=== PATIENT | male | born 1945 | race Two or more races ===

== ENCOUNTER → 2018-05-31 | Outpatient (CLI) | payer MEDICARE, MEDICAID | END | disposition home or self-care (01) | LOC: CFH 12:59 | PROVIDERS: ATTEND Internal Medicine Cardiovascular Disease | DX: R06.02 Shortness of breath (principal) | CPT/HCPCS: 78452; 93017; A9502 ==

== ENCOUNTER 2019-11-01 13:20 | Outpatient (CLI) | payer MEDICARE, MEDICAID | END 2019-11-01 23:59 | disposition home or self-care (01) | LOC: CFH 13:20 | PROVIDERS: ATTEND Internal Medicine Cardiovascular Disease | DX: I08.2 Rheumatic disorders of both aortic and tricuspid valves (principal); I10 Essential (primary) hypertension | CPT/HCPCS: 93306 ==

== ENCOUNTER 2021-03-11 07:24 | Outpatient (CLI) | payer MEDICARE, MEDICAID ==
[2021-03-11] MEDS ORDERED: MONT10TA6 PO (08:38)
[2021-03-11] MEDS ORDERED: FURO20TA3 PO (08:38)
[2021-03-11] MEDS ORDERED: PROP10DR4 EACHEYE (08:38)
[2021-03-11] MEDS ORDERED: LOSA100T14 PO (08:38)
[2021-03-11] MEDS ORDERED: ASPI81TA45 PO (08:38)
[2021-03-11] MEDS ORDERED: ALFU10TA PO (08:38)
[2021-03-11] MEDS ORDERED: B CO1CAP5 PO (08:38)
[2021-03-11] MEDS ORDERED: AMLO-211 PO (08:38)
[2021-03-11] MEDS ORDERED: ATOR40TA78 PO (08:38)
[2021-03-11] MEDS ORDERED: CARV12.52 PO (08:38)
[2021-03-11] MEDS ORDERED: diclofenac (08:38)
[2021-03-11] MEDS ORDERED: TRAZ50TA66 PO (08:38)
[2021-03-11] MEDS ORDERED: OMEG1CAP23 PO (08:38)
[2021-03-11] MEDS ORDERED: CHLO25TA PO (08:38)
[2021-03-11 08:55] LABS: MICROSCOPIC NOT IND
[2021-03-11 09:06] LABS: ANION GAP 3 mmol/L (5-15); CALCIUM 9.1 mg/dL (8.5-10.1); CHLORIDE 104 mmol/L (98-107)
[2021-03-11 09:10] LABS: ALANINE AMINOTRANSFERASE 36 U/L (12-78); ALKALINE PHOSPHATASE 86 U/L (45-117); BILIRUBIN,TOTAL 0.6 mg/dL (0.2-1.0); CREATININE 1.42 mg/dL (0.7-1.3); TOTAL PROTEIN 7.9 g/dL (6.4-8.2)
[2021-03-24] MEDS ORDERED: VALA10004 PO (15:51)
[2021-03-24] MEDS ORDERED: DAPT500V6 IV (15:51)
== END 2021-03-11 23:59 | disposition home or self-care (01) ==
LOC: STAR 07:24
PROVIDERS: ATTEND Urology
DX: Z01.818 Encounter for other preprocedural examination (principal); N40.1 Benign prostatic hyperplasia with lower urinary tract symptoms
CPT/HCPCS: 36415; 80053; 81003; 87086; 93005

== ENCOUNTER 2021-03-17 10:09 | Observation (INO) | payer MEDICARE, MEDICAID ==
[~2021-03-17] VITALS: Ht 152.4 cm; Wt 87.3 kg
[~2021-03-17 10:09] MED LIST: ALFU10TA PO; AMLO-211 PO; ASPI81TA45 PO; ATOR40TA78 PO; B CO1CAP5 PO; CARV12.52 PO; CHLO25TA PO; FURO20TA3 PO; LOSA100T14 PO; MONT10TA6 PO; OMEG1CAP23 PO; PROP10DR4 EACHEYE; TRAZ50TA66 PO; diclofenac
[2021-03-17 10:40] VITALS: BP 131/80
[2021-03-17] MEDS ORDERED: LACTATED RINGERS 1,000 ML IV SCH (11:00)
[2021-03-17] MEDS ORDERED: CHLORHEXIDINE 15 ML UDC PO ONE (11:00)
[2021-03-17] MEDS ORDERED: FENTANYL PF 250 MCG/5ML ONE (11:25)
[2021-03-17] MEDS ORDERED: PROPOFOL 10 MG/ML, 20ML ONE (12:03)
[2021-03-17] MEDS ORDERED: CEFAZOLIN 1,000 MG ONE (12:03)
[2021-03-17] MEDS ORDERED: SUGAMMADEX 200 MG/2 ML IVPush ONE (12:03)
[2021-03-17] MEDS ORDERED: DEXAMETHASONE 4 MG/ML, 1ML ONE (12:03)
[2021-03-17] MEDS ORDERED: GLYCOPYRROLATE 0.2MG/1ML, 5ML ONE (12:03)
[2021-03-17] MEDS ORDERED: ROCURONIUM 10MG/ML,5ML ONE (12:03)
[2021-03-17] MEDS ORDERED: ONDANSETRON 2MG/ML, 2ML ONE (12:03)
[2021-03-17] MEDS ORDERED: NEOSTIGMINE 1 MG/ML, 10ML ONE (12:03)
[2021-03-17] MEDS ORDERED: SUCCINYLCHOLINE 20 MG/ML, 10ML ONE (12:03)
[2021-03-17] MEDS ORDERED: ALBUTEROL HFA 90 MCG/SPRAY ONE (12:17)
[2021-03-17] MEDS ORDERED: ALBUTEROL SULFATE 2.5 MG/3 ML NPPB PRN (12:30)
[2021-03-17] MEDS ORDERED: ONDANSETRON 2MG/ML, 2ML IV PRN (12:30)
[2021-03-17] MEDS ORDERED: OXYcodone 5 MG/5 ML ORAL.SOL UDC PO PRN (12:30)
[2021-03-17] MEDS ORDERED: LABETALOL 5MG/ML, 20ML IV PRN (12:30)
[2021-03-17] MEDS ORDERED: MEPERIDINE/PF 25MG/0.5ML IVPush PRN (12:30)
[2021-03-17] MEDS ORDERED: HYDROmorphone 2 MG/ML, 1ML IVPush PRN (12:30)
[2021-03-17] MEDS ORDERED: hydrALAzine 20 MG/ML, 1ML IV PRN (12:30)
[2021-03-17] MEDS ORDERED: PROMETHAZINE 25 MG/ML, 1ML IV PRN (12:30)
[2021-03-17] MEDS ORDERED: DIAZEPAM 5 MG/ML, 2ML IVPush PRN (12:30)
[2021-03-17] MEDS ORDERED: ACETAMINOPHEN 325 MG TABLET PO PRN (12:30)
[2021-03-17] MEDS ORDERED: KETOROLAC 30 MG/1 ML IV PRN (12:30)
[2021-03-17] MEDS ORDERED: FENTANYL PF 100 MCG/2ML IV PRN (12:30)
[2021-03-17] MEDS ORDERED: HYDROcodone/APAP 5/325 TABLET PO PRN (12:30)
[2021-03-17 13:45] VITALS: BP 118/70
[2021-03-17] MEDS: LACTATED RINGERS 1,000 ML IV SCH (14:19)
[2021-03-17] MEDS: CARVEDILOL 12.5 MG TABLET PO SCH (17:25)
[2021-03-17 19:25] VITALS: BP 122/66
[2021-03-17] MEDS: ARTIFICIAL TEARS 15 DROP/ML BOTTLE OP SCH (20:39)
[2021-03-17] MEDS ORDERED: ATORVASTATIN 40 MG TABLET PO SCH (21:00)
[2021-03-17] MEDS ORDERED: TRAZODONE 50MG TABLET PO SCH (21:00)
[2021-03-17] MEDS ORDERED: MONTELUKAST 10 MG TABLET PO SCH (21:00)
[2021-03-17 23:27] VITALS: BP 113/66
[2021-03-18] MEDS: LACTATED RINGERS 1,000 ML IV SCH (01:50)
[2021-03-18 03:01] VITALS: BP 116/69
[2021-03-18] MEDS: CARVEDILOL 12.5 MG TABLET PO SCH (05:44)
[2021-03-18] MEDS: ARTIFICIAL TEARS 15 DROP/ML BOTTLE OP SCH (08:41)
[2021-03-18 08:54] VITALS: BP 128/61
[2021-03-18] MEDS ORDERED: FUROSEMIDE 20 MG TABLET PO SCH (09:00)
[2021-03-18] MEDS ORDERED: CHLORTHALIDONE 25 MG TABLET PO SCH (09:00)
[2021-03-18] MEDS ORDERED: AMLODIPINE 10 MG TAB PO SCH (09:00)
[2021-03-18] MEDS ORDERED: OMEGA-3/FISH OIL CAPSULE PO SCH (09:00)
[2021-03-18] MEDS ORDERED: MULTIVITS,STRESS FORMULA 1 TABLET PO SCH (09:00)
[2021-03-18] MEDS ORDERED: LOSARTAN 100 MG TAB PO SCH (09:00)
== END 2021-03-18 12:40 | disposition home or self-care (01) ==
LOC: OUT 10:09 → ORIP 12:24 → 4NE 13:38
PROVIDERS: ADMIT Urology; ATTEND Urology
DX: N40.1 Benign prostatic hyperplasia with lower urinary tract symptoms (principal); Z20.822 Contact with and (suspected) exposure to COVID-19; R39.9 Unspecified symptoms and signs involving the genitourinary system; I10 Essential (primary) hypertension; E78.5 Hyperlipidemia, unspecified; G47.33 Obstructive sleep apnea (adult) (pediatric); Z90.79 Acquired absence of other genital organ(s); Z79.899 Other long term (current) drug therapy
CPT/HCPCS: 52601; 87635; 88305; 88307; 96360; 96361; G0378; J0330; J0690; J1100; J2405; J2704; J2710; J3010; J7120

== ENCOUNTER 2021-03-25 21:09 | Emergency (ER) | payer MEDICARE, MEDICAID ==
[~2021-03-25] VITALS: Ht 154.9 cm; Wt 84.2 kg
[~2021-03-25 21:09] MED LIST changes: +DAPT500V6 IV; +VALA10004 PO
--- NOTE | 2021-03-25 21:27 | NUR ---
pt presents to ed with c/o cough/muscle aches/sob/sore throat x1 day. Recent dx of sepsis with urinary source-receiving iv abx via picc (last dose this morning at 10am) MADDY Varela at bedside for eval.
[2021-03-25] MEDS ORDERED: ALBUTEROL SULFATE 2.5 MG/3 ML NPPB ONE (21:30)
[2021-03-25] MEDS ORDERED: ALBUTEROL SULFATE 2.5 MG/3 ML ONE (21:45)
--- NOTE | 2021-03-25 21:50 | NUR ---
breathing tx in progress, pt tolerating well.
[2021-03-25 22:36] LABS: BASOPHILS % (AUTO) 1 % (0-1); EOSINOPHILS % (AUTO) 7 % (1-7); LYMPHOCYTES % (AUTO) 24 % (22-44); MEAN CORPUSCULAR HEMOGLOBIN 32.8 pg (27.5-34.5); MEAN CORPUSCULAR HGB CONC 34.7 g/dL (33.2-36.2); MEAN PLATELET VOLUME 8.8 fL (7.4-10.4); MONOCYTES % (AUTO) 22 % (2-9); NEUTROPHILS % (AUTO) 46 % (42-75); PLATELET COUNT 210 x10^3/uL (130-400); RED BLOOD COUNT 4.12 x10^6/uL (4.38-5.82); RED CELL DISTRIBUTION WIDTH 13.7 % (9.4-14.8)
[2021-03-25 22:44] LABS: ALBUMIN 3.1 g/dL (3.4-5.0); ANION GAP 7 mmol/L (5-15); CHLORIDE 105 mmol/L (98-107); CREATININE 1.65 mg/dL (0.7-1.3)
[2021-03-25 22:54] LABS: <PLATELET ESTIMATE> ADEQUATE; <PLT MORPHOLOGY> NORMAL PLT MORPH; <RBC MORPHOLOGY> NORMAL
[2021-03-25] MEDS ORDERED: APAP/CODEINE 300/30MG TABLET ONE (23:29)
[2021-03-25] MEDS ORDERED: ACETAMINOPHEN 325 MG TABLET ONE (23:29)
[2021-03-25] MEDS ORDERED: ACETAMINOPHEN 325 MG TABLET PO ONE (23:30)
[2021-03-25] MEDS ORDERED: APAP/CODEINE 300/30MG TABLET PO PRN (23:30)
--- NOTE | 2021-03-25 23:44 | NUR ---
pt resting in bed, medicated per order, toelrated well, nadn.
--- NOTE | 2021-03-26 00:19 | NUR ---
pt has unwitnessed fall in room at 0016, physical exam performed, pt has no complaint of spinal, hip, or head pain. pt did not hit head falling to ground, but did land on L elbow. pt has full ROM with left arm, pt assisted back to bed with this RN and 2 other RN. reinforced pt how to use call light, both side rails up for pt safety, reoriented pt to call and not fall. Addendum: 03/26/21 at 0021 by MEGAN pt has unwitnessed fall in room at 0016, physical exam performed, pt has no complaint of spinal, hip, or head pain. pt did not hit head falling to ground, but did land on L elbow. pt has full ROM with left arm, pt assisted back to bed with this RN and 2 other RN. reinforced pt how to use call light, both side rails up for pt safety, reoriented pt to call and not fall. provider notified at this time, no further interventions at this time per physician instruction.
[2021-03-26] MEDS ORDERED: SODIUM CHLORIDE 0.9%, 500ML IVBOLUS ONE (00:30)
--- NOTE | 2021-03-26 00:56 | NUR ---
NEED REQUIRED IV FOR CTA.
--- NOTE | 2021-03-26 01:26 | NUR ---
New PIV placed for CT, pt ready at this time
--- NOTE | 2021-03-26 01:40 | NUR ---
pt taken to CT at this time
[2021-03-26] MEDS ORDERED: OMNIPAQUE 350 MG/ML, 100ML BOTTLE ONE (01:56)
--- NOTE | 2021-03-26 01:58 | NUR ---
pt back from ct, resting in bed, vss, nadn. awaiting ct results and dispo
--- NOTE | 2021-03-26 02:57 | NUR ---
report given to Kemal stuart
--- NOTE | 2021-03-26 03:17 | NUR ---
pt asleep in bed, all needs in reach, call light in reach, nad at this time
[2021-03-26] MEDS ORDERED: AZITHROMYCIN 500 MG TABLET PO SCH (03:30)
[2021-03-26] MEDS ORDERED: AZITHROMYCIN 250 MG TABLET ONE (03:37)
[2021-03-26 03:47] VITALS: BP 110/62
== END 2021-03-26 03:59 | disposition home or self-care (01) ==
LOC: ED 23:47
DX: J18.9 Pneumonia, unspecified organism (principal); R05 Cough; E86.0 Dehydration; R55 Syncope and collapse; R50.9 Fever, unspecified; I10 Essential (primary) hypertension
CPT/HCPCS: 36415; 71045; 71275; 80048; 82040; 83880; 85025; 85379; 93005; 99285; J7613; Q9967; 94640